=== PATIENT | male | born 1985 | race African-American/Black ===

== ENCOUNTER 2018-12-04 05:53 | Emergency (ER) | payer OTHER ==
[~2018-12-04] VITALS: Ht 180.3 cm; Wt 87.3 kg
[2018-12-04 06:26] VITALS: BP 131/79
== END 2018-12-04 06:29 | disposition home or self-care (01) ==
LOC: EMS 05:53
DX: S60.511A Abrasion of right hand, initial encounter (principal); F10.129 Alcohol abuse with intoxication, unspecified; Y90.9 Presence of alcohol in blood, level not specified; W19.XXXA Unspecified fall, initial encounter; Y93.89 Activity, other specified; Y92.89 Other specified places as the place of occurrence of the external cause; Y99.8 Other external cause status